=== PATIENT | female | born 1945 | race Hispanic/Latino ===

== ENCOUNTER → 2024-02-27 | Outpatient (CLI) | payer OTHER, MEDICARE | END | disposition home or self-care (01) | LOC: RAH 11:14 | PROVIDERS: ATTEND Internal Medicine Cardiovascular Disease | DX: R91.8 Other nonspecific abnormal finding of lung field (principal); I70.0 Atherosclerosis of aorta; R94.31 Abnormal electrocardiogram [ECG] [EKG]; M47.815 Spondylosis without myelopathy or radiculopathy, thoracolumbar region; R60.9 Edema, unspecified | CPT/HCPCS: 71046 ==